=== PATIENT | female | born 1985 | race Hispanic/Latino ===

== ENCOUNTER → 2017-07-06 | Outpatient (CLI) | payer OTHER ==
[2017-07-06 14:03] LABS: HEMATOCRIT 38.6 % (36.0-47.0); HEMOGLOBIN 13.3 g/dl (12.0-16.0); MEAN CORPUSCULAR HEMOGLOBIN 30.7 pg (27.0-33.0); MEAN CORPUSCULAR HGB CONC 34.5 g/dl (32.0-36.5); MEAN CORPUSCULAR VOLUME 89.1 fl (80.0-96.0); PLATELET COUNT, AUTOMATED 310 10^3/uL (150-450); RED BLOOD COUNT 4.33 10^6/uL (4.00-5.40); RED CELL DISTRIBUTION WIDTH 12.2 % (11.5-14.5); WHITE BLOOD COUNT 14.6 10^3/uL (4.0-10.0)
[2017-07-06 14:39] LABS: ALBUMIN/GLOBULIN RATIO 1.14 (1.00-1.93); ALKALINE PHOSPHATASE 78 U/L (45-117); ALT/SGPT 28 U/L (12-78); ANION GAP 9 MEQ/L (8-16); AST/SGOT 17 U/L (7-37); BILIRUBIN,TOTAL 0.6 MG/DL (0.2-1.0); BLOOD UREA NITROGEN 13 MG/DL (7-18); CALCIUM LEVEL 9.1 MG/DL (8.5-10.1); CARBON DIOXIDE LEVEL 25 MEQ/L (21-32); CHLORIDE LEVEL 103 MEQ/L (98-107); CREATININE FOR GFR 0.66 MG/DL (0.55-1.30); GLOMERULAR FILTRATION RATE > 60.0 (>60); GLUCOSE, FASTING 82 MG/DL (70-100); POTASSIUM SERUM 4.2 MEQ/L (3.5-5.1); SODIUM LEVEL 137 MEQ/L (136-145); TOTAL PROTEIN 7.5 GM/DL (6.4-8.2)
== END ==
LOC: M SMT 10:10
DX: Z13.29 Encounter for screening for other suspected endocrine disorder (principal); Z13.0 Encounter for screening for diseases of the blood and blood-forming organs and certain disorders involving the immune mechanism

== ENCOUNTER → 2017-07-28 | Outpatient (CLI) | payer OTHER ==
[2017-07-28 17:24] LABS: BASO # 0.1 10^3/uL (0.0-0.2); BASO % 0.5 % (0.0-1.0); EOS # 0.5 10^3/uL (0.0-0.50); HEMATOCRIT 39.4 % (36.0-47.0); HEMOGLOBIN 13.8 g/dl (12.0-16.0); IMMATURE GRANULOCYTE % 0.4 % (0-3.0); LYMPH # 2.2 10^3/uL (1.5-4.5); LYMPH % 16.8 % (24.0-44.0); MEAN CORPUSCULAR HEMOGLOBIN 31.2 pg (27.0-33.0); MEAN CORPUSCULAR VOLUME 88.9 fl (80.0-96.0); MONO # 0.5 10^3/uL (0.0-0.8); MONO % 3.5 % (0.0-5.0); NEUTROPHILS % 74.8 % (36.0-66.0); PLATELET COUNT, AUTOMATED 319 10^3/uL (150-450); RED BLOOD COUNT 4.43 10^6/uL (4.00-5.40); RED CELL DISTRIBUTION WIDTH 12.5 % (11.5-14.5); WHITE BLOOD COUNT 13.4 10^3/uL (4.0-10.0)
[2017-07-28 18:34] LABS: ALT/SGPT 18 U/L (12-78); AST/SGOT 13 U/L (7-37); BILIRUBIN,TOTAL 0.6 MG/DL (0.2-1.0); CREATININE FOR GFR 0.54 MG/DL (0.55-1.30); GLOMERULAR FILTRATION RATE > 60.0 (>60); LDH LACTATE DEHYDROGENASE 189 U/L (84-246); URIC ACID 2.3 MG/DL (2.6-6.0)
[2017-07-28 19:02] LABS: TOTAL PROTEIN,RANDOM URINE 21.2 MG/DL (0.0-12.0)
[2017-07-28 20:04] LABS: CHLAMYDIA DNA AMPLIFICATION NEGATIVE (NEGATIVE); GC DNA AMPLIFICATION NEGATIVE (NEGATIVE)
[2017-07-31 12:02] LABS: RUBELLA IgG QUALITATIVE IMMUNE (IMMUNE)
[2017-07-31 12:07] LABS: HBsAg Prenatal NEGATIVE (NEGATIVE)
[2017-07-31 12:32] LABS: HIV 1&2 SCREEN CENTAUR NEGATIVE (NEGATIVE)
== END ==
LOC: M SMT 14:50
DX: Z36.9 Encounter for antenatal screening, unspecified (principal); Z3A.11 11 weeks gestation of pregnancy
CPT/HCPCS: 84460

== ENCOUNTER → 2017-08-28 | Outpatient (CLI) | payer OTHER | LOC: M SMT 10:53 | DX: Z36.89 Encounter for other specified antenatal screening (principal) | CPT/HCPCS: 36415 ==

== ENCOUNTER → 2017-09-25 | Outpatient (CLI) | payer OTHER | LOC: M SMT 09:09 | DX: Z36.89 Encounter for other specified antenatal screening (principal); Z3A.19 19 weeks gestation of pregnancy | CPT/HCPCS: 76811 ==

== ENCOUNTER → 2017-10-27 | Outpatient (CLI) | payer OTHER | LOC: M SMT 14:27 | DX: Z34.82 Encounter for supervision of other normal pregnancy, second trimester (principal); Z36.89 Encounter for other specified antenatal screening; Z3A.23 23 weeks gestation of pregnancy | CPT/HCPCS: 76816 ==

== ENCOUNTER → 2017-11-15 | Outpatient (CLI) | payer OTHER ==
[2017-11-15 18:03] LABS: HEMATOCRIT 35.3 % (36.0-47.0); HEMOGLOBIN 11.9 g/dl (12.0-15.5); MEAN CORPUSCULAR HEMOGLOBIN 31.5 pg (27.0-33.0); MEAN CORPUSCULAR HGB CONC 33.7 g/dl (32.0-36.5); MEAN CORPUSCULAR VOLUME 93.4 fl (80.0-96.0); PLATELET COUNT, AUTOMATED 281 10^3/uL (150-450); RED BLOOD COUNT 3.78 10^6/uL (4.00-5.40); RED CELL DISTRIBUTION WIDTH 12.8 % (11.5-14.5); WHITE BLOOD COUNT 11.6 10^3/uL (4.0-10.0)
[2017-11-15 18:29] LABS: GLUCOSE CHALLENGE TEST 1 HOUR 131 MG/DL (LESS THAN 140)
== END ==
LOC: M SMT 13:00
DX: Z34.82 Encounter for supervision of other normal pregnancy, second trimester (principal)
CPT/HCPCS: 82950

== ENCOUNTER → 2017-11-21 | Outpatient (CLI) | payer OTHER ==
[2017-11-21 08:47] LABS: GLUCOSE, FASTING 94 MG/DL (LESS THAN 95)
[2017-11-21 09:54] LABS: 1 HR GLUCOSE 149 MG/DL (LESS THAN 180)
[2017-11-21 10:24] LABS: 2 HR GLUCOSE 125 MG/DL (LESS THAN 155)
[2017-11-21 11:23] LABS: 3 HR GLUCOSE 103 MG/DL (LESS THAN 140)
== END ==
LOC: M LAB 07:27
DX: R73.02 Impaired glucose tolerance (oral) (principal)
CPT/HCPCS: 82951

== ENCOUNTER → 2017-12-22 | Outpatient (CLI) | payer OTHER | LOC: M RAD 06:38 | DX: O10.012 Pre-existing essential hypertension complicating pregnancy, second trimester (principal); Z3A.33 33 weeks gestation of pregnancy | CPT/HCPCS: 76816 ==

== ENCOUNTER → 2018-01-12 | Outpatient (CLI) | payer OTHER | LOC: M RAD 11:13 | DX: O10.013 Pre-existing essential hypertension complicating pregnancy, third trimester (principal); Z36.89 Encounter for other specified antenatal screening; Z3A.35 35 weeks gestation of pregnancy | CPT/HCPCS: 76816 ==

== ENCOUNTER → 2018-01-18 | Outpatient (REF) | payer OTHER | LOC: M LAB REF 13:43 | DX: Z34.83 Encounter for supervision of other normal pregnancy, third trimester (principal) ==

== ENCOUNTER 2018-02-01 05:41 | Inpatient (IN) | payer OTHER ==
[2018-02-01] MEDS: LR 1,000 ML IV (07:17)
[2018-02-01 08:12] LABS: HEMATOCRIT 33.7 % (36.0-47.0); HEMOGLOBIN 11.7 g/dl (12.0-15.5); MEAN CORPUSCULAR HEMOGLOBIN 31.5 pg (27.0-33.0); MEAN CORPUSCULAR HGB CONC 34.7 g/dl (32.0-36.5); MEAN CORPUSCULAR VOLUME 90.8 fl (80.0-96.0); PLATELET COUNT, AUTOMATED 201 10^3/uL (150-450); RED BLOOD COUNT 3.71 10^6/uL (4.00-5.40); WHITE BLOOD COUNT 14.3 10^3/uL (4.0-10.0)
[2018-02-01] MEDS: PRENATAL VITAMINS CHEWABLE TABLET PO (09:00)
[2018-02-01] MEDS ORDERED: OXYTOCIN 30 UNITS IN 0.9% NaCl 500ML IV BAG (J2590) As Ordered (09:47)
[2018-02-01] MEDS: OXYTOCIN DRIP 30 UNITS in APPROPRIATE DILUENT 1 EA IV (11:56)
[2018-02-01] MEDS ORDERED: ONDANSETRON 4MG/2ML VIAL (J2405) IV (12:00)
[2018-02-01] MEDS ORDERED: METHYLERGONOVINE MALEATE 0.2 MG TAB PO (12:00)
[2018-02-01] MEDS ORDERED: DOCUSATE SODIUM 100 MG CAP PO (12:00)
[2018-02-01] MEDS: LIDOCAINE 1% MDV 20ML VIAL INFIL (12:00)
[2018-02-01] MEDS ORDERED: DIBUCAINE 1% OINTMENT 30GM TOP (12:00)
[2018-02-01] MEDS ORDERED: MEASLES,MUMPS,RUBELLA VACCINE INJ (MMR-II) (90707) SC (12:00)
[2018-02-01] MEDS ORDERED: RHOGAM 300 MCG (1500 IU) INJ (J2790) IM (12:00)
[2018-02-01] MEDS: IBUPROFEN 800 MG TAB PO (13:46)
[2018-02-02] MEDS: ACETAMINOPHEN 500 MG TAB PO ×3 (00:20→15:27)
[2018-02-02] MEDS: PRENATAL VITAMINS CHEWABLE TABLET PO (08:13)
[2018-02-02] MEDS: IBUPROFEN 800 MG TAB PO (08:13)
[2018-02-03] MEDS: IBUPROFEN 800 MG TAB PO (01:20)
[2018-02-03] MEDS: PRENATAL VITAMINS CHEWABLE TABLET PO (09:45)
== END 2018-02-03 11:15 | disposition home or self-care (01) | DRG 775 ==
LOC: M LDO 05:41 → M LDI 07:14 → M OBS 13:55
PROVIDERS: Specialist
PROC: 10E0XZZ Delivery of Products of Conception, External Approach (ICD-10-PCS; principal; 2018-02-01)
PROC: 0KQM0ZZ Repair Perineum Muscle, Open Approach (ICD-10-PCS; 2018-02-01)
DX: O13.4 Gestational [pregnancy-induced] hypertension without significant proteinuria, complicating childbirth (principal); Z37.0 Single live birth; Z3A.37 37 weeks gestation of pregnancy; O70.1 Second degree perineal laceration during delivery

== ENCOUNTER → 2018-06-20 | Outpatient (REF) | payer OTHER ==
[~2018-06-20] MED LIST: IBUP-1114 PO; MAPA500T2 PO; PRENTAB9 PO
== END ==
LOC: M LAB REF 18:23
PROVIDERS: ATTEND Family Medicine
DX: Z12.4 Encounter for screening for malignant neoplasm of cervix (principal)

== ENCOUNTER → 2018-12-07 | Outpatient (CLI) | payer OTHER ==
[2018-12-07 17:21] LABS: BASO # 0.1 10^3/uL (0.0-0.2); BASO % 1.2 % (0.0-1.0); EOS # 0.4 10^3/uL (0.0-0.50); EOS % 4.4 % (0.0-3.0); HEMATOCRIT 41.2 % (36.0-47.0); HEMOGLOBIN 13.8 g/dl (12.0-15.5); LYMPH # 2.7 10^3/uL (1.5-4.5); LYMPH % 27.1 % (24.0-44.0); MEAN CORPUSCULAR HEMOGLOBIN 29.2 pg (27.0-33.0); MEAN CORPUSCULAR HGB CONC 33.5 g/dl (32.0-36.5); MEAN CORPUSCULAR VOLUME 87.1 fl (80.0-96.0); MONO # 0.4 10^3/uL (0.0-0.8); MONO % 4.1 % (0.0-5.0); NEUTROPHILS # 6.3 10^3/uL (1.8-7.7); PLATELET COUNT, AUTOMATED 326 10^3/uL (150-450); RED BLOOD COUNT 4.73 10^6/uL (4.00-5.40)
[2018-12-07 17:36] LABS: ALBUMIN 3.7 GM/DL (3.2-5.2); ALT/SGPT 21 U/L (12-78); BILIRUBIN,TOTAL 0.7 MG/DL (0.2-1.0); BLOOD UREA NITROGEN 12 MG/DL (7-18); CALCIUM LEVEL 8.3 MG/DL (8.5-10.1); CARBON DIOXIDE LEVEL 22 MEQ/L (21-32); CHLORIDE LEVEL 108 MEQ/L (98-107); CREATININE FOR GFR 0.81 MG/DL (0.55-1.30); FREE T4 0.86 NG/DL (0.76-1.46); GLOMERULAR FILTRATION RATE > 60.0 (>60); GLUCOSE, FASTING 85 MG/DL (70-100); POTASSIUM SERUM 4.3 MEQ/L (3.5-5.1); SODIUM LEVEL 139 MEQ/L (136-145); THYROID STIMULATING HORMONE 0.385 uIU/ML (0.358-3.740); TOTAL 25(OH) VITAMIN D 11.7 NG/ML (30.0-100.0)
== END ==
LOC: M SMT 11:04
PROVIDERS: ATTEND Family Medicine
DX: Z13.29 Encounter for screening for other suspected endocrine disorder (principal); Z13.0 Encounter for screening for diseases of the blood and blood-forming organs and certain disorders involving the immune mechanism; E55.9 Vitamin D deficiency, unspecified

== ENCOUNTER → 2019-01-11 | Outpatient (CLI) | payer OTHER ==
--- NOTE | 2019-01-11 15:55 | REP ---
HISTORY: Pain. FINDINGS: The compartments are symmetric and relatively well maintained. There is no acute fracture or destructive osseous lesion. Electronically Signed by Moody Street DO 01/11/2019 04:05 P
== END ==
LOC: M SMT 14:09
PROVIDERS: ATTEND Family Medicine
DX: M25.562 Pain in left knee (principal)

== ENCOUNTER → 2019-02-07 | Outpatient (CLI) | payer OTHER ==
[2019-02-07 13:46] LABS: BASO # 0.1 10^3/uL (0.0-0.2); BASO % 1.7 % (0.0-1.0); EOS # 0.6 10^3/uL (0.0-0.5); EOS % 7.3 % (0.0-3.0); HEMATOCRIT 40.9 % (36.0-47.0); HEMOGLOBIN 13.9 g/dl (12.0-15.5); LYMPH # 2.3 10^3/uL (1.5-5.0); LYMPH % 29.8 % (24.0-44.0); MEAN CORPUSCULAR HEMOGLOBIN 29.8 pg (27.0-33.0); MEAN CORPUSCULAR VOLUME 87.8 fl (80.0-96.0); MONO # 0.5 10^3/uL (0.0-0.8); NEUTROPHILS # 4.2 10^3/uL (1.5-8.5); NEUTROPHILS % 55.1 % (36.0-66.0); PLATELET COUNT, AUTOMATED 293 10^3/uL (150-450); RED BLOOD COUNT 4.66 10^6/uL (4.00-5.40); WHITE BLOOD COUNT 7.6 10^3/uL (4.0-10.0)
[2019-02-07 13:57] LABS: ALT/SGPT 73 U/L (12-78); BILIRUBIN,TOTAL 0.5 MG/DL (0.2-1.0); BLOOD UREA NITROGEN 12 MG/DL (7-18); CALCIUM LEVEL 9.4 MG/DL (8.5-10.1); CARBON DIOXIDE LEVEL 23 MEQ/L (21-32); CHLORIDE LEVEL 106 MEQ/L (98-107); CREATININE FOR GFR 0.69 MG/DL (0.55-1.30); FREE T4 0.97 NG/DL (0.76-1.46); GLOMERULAR FILTRATION RATE > 60.0 (>60); GLUCOSE, FASTING 94 MG/DL (70-100); POTASSIUM SERUM 4.4 MEQ/L (3.5-5.1); SODIUM LEVEL 137 MEQ/L (136-145); THYROID STIMULATING HORMONE 0.066 uIU/ML (0.358-3.740); TOTAL PROTEIN 7.1 GM/DL (6.4-8.2)
[2019-02-08 10:41] LABS: THYROGLOBULIN ANTIBODY 348.4 U/ML (<60.0); THYROID PEROXIDASE ANTIBODY 630.2 U/ML (<60.0)
== END ==
LOC: M SMT 10:37
PROVIDERS: ATTEND Family Medicine
DX: I10 Essential (primary) hypertension (principal)

== ENCOUNTER → 2019-02-14 | Outpatient (CLI) | payer OTHER ==
--- NOTE | 2019-02-15 15:42 | REP ---
NUCLEAR THYROID UPTAKE AND SCAN: Following the oral administration of 375 microcuries of iodine 123 of sodium iodine, 24 hour uptake is measured. The 24 hour uptake is 38.25% which is slightly above the mariana range of 25-35%. Thyroid scan shows possibly some very mild enlargement of both lobes of the thyroid, right measuring about 4.9 cm in length and the left 4.4 cm in length. No focal hot or cold nodule is seen. IMPRESSION: Slightly elevated 24 hour uptake value of 38.25%. No focal hot or cold nodule bilaterally. Electronically Signed by Aaron South MD 02/15/2019 06:55 P
== END ==
LOC: M RAD 13:05
PROVIDERS: ATTEND Family Medicine
DX: E05.90 Thyrotoxicosis, unspecified without thyrotoxic crisis or storm (principal)